=== PATIENT | male | born 1940 | race Caucasian/White ===

== ENCOUNTER 2023-07-10 06:47 | Inpatient (IN) | payer MEDICARE ==
[~2023-07-10] VITALS: Ht 185.4 cm; Wt 81.0 kg
[2023-07-10] VITALS (12 sets, daily range): BP systolic 141–199; BP diastolic 70–80; PULSE 48–62; RESP 20; TEMP 98
[2023-07-10] MEDS ORDERED: NIFE-141 PO (07:15)
[2023-07-10] MEDS ORDERED: AMOX1TAB16 PO (07:15)
[2023-07-10] MEDS ORDERED: FINA-27 PO (07:15)
[2023-07-10 07:41] LABS: BASOPHILS % (AUTO) 0.5 % (0.0-2.0); HEMATOCRIT 41.2 % (41-53); LYMPHOCYTES # (AUTO) 2.9 K/uL (1.0-4.8); LYMPHOCYTES % (AUTO) 43.4 % (22.0-44.0); MEAN CORPUSCULAR HEMOGLOBIN 32.3 pg (26.0-34.0); MEAN CORPUSCULAR VOLUME 95 fL (80-100); MONOCYTES # (AUTO) 0.6 K/uL (0.1-1.0); MONOCYTES % (AUTO) 8.6 % (2.0-9.0); NEUTROPHILS % (AUTO) 44.5 % (40.0-70.0); PLATELET COUNT (AUTO) 168 K/uL (150-450); RED BLOOD CELL COUNT(AUTO) 4.34 MIL/uL (4.50-5.90); RED CELL DISTRIBUTION WIDTH 13.3 % (11.5-14.5); WHITE BLOOD COUNT (AUTO) 6.7 K/uL (4.5-11.0)
[2023-07-10 07:56] LABS: ANION GAP 8 mmol/L (8-16); CARBON DIOXIDE 27 mmol/L (22-29); CHLORIDE 103 mmol/L (98-107); CREATININE 0.85 mg/dL (0.60-1.30); GLOMERULAR FILTR. RATE CALC > 60 mL/min (>60); GLUCOSE,RANDOM 101 mg/dL (70-110); POTASSIUM 3.8 mmol/L (3.5-5.1); SODIUM SERUM 138 mmol/L (136-145); UREA NITROGEN, BLOOD 13 mg/dL (7-18)
[2023-07-10 08:00] LABS: ALANINE AMINOTRANSFERASE 12 U/L (12-78); ALBUMIN 3.7 g/dL (3.4-5.0); ALKALINE PHOSPHATASE 64 U/L (46-116); ASPARTATE AMINOTRANSFERASE 20 U/L (15-37); BILIRUBIN,TOTAL 0.5 mg/dL (0.1-1.0); TOTAL PROTEIN, SERUM 7.1 g/dL (6.4-8.2); TROPONIN I-HIGH SENSITIVITY 139 ng/L (<76)
[2023-07-10] MEDS ORDERED: LIDOCAINE/PF 1% 30 ML VIAL ONE (10:20)
[2023-07-10] MEDS ORDERED: SODIUM BICARBONATE 50 MEQ/50 ML VIAL ONE (10:20)
[2023-07-10] MEDS ORDERED: HEPARIN SODIUM 1000 UNITS/NS 1,000 ML ONE (10:21)
[2023-07-10] MEDS ORDERED: IOHEXOL 300 MG/ML 100 ML VIAL ONE ×2 (10:21→11:47)
[2023-07-10] MEDS ORDERED: FentaNYL CITRATE PF 100 MCG/2 ML VIAL ONE (10:38)
[2023-07-10] MEDS ORDERED: MIDAZOLAM HCL 2 MG/2 ML VIAL ONE (10:38)
[2023-07-10] MEDS ORDERED: LIDOCAINE 1% 30 ML/SOD BICARB 8.4% 4 ML SQ ONE (11:00)
[2023-07-10] MEDS ORDERED: HEPARIN SODIUM 1000 UNITS/NS 1,000 ML IARTER ONE (11:00)
[2023-07-10] MEDS ORDERED: IOHEXOL 300 MG/ML 100 ML VIAL IARTER ONE ×2 (11:00→11:45)
[2023-07-10] MEDS ORDERED: HEPARIN SODIUM,PORCINE 1,000 UNITS/ML 10 ML VIAL IV ONE (11:30)
[2023-07-10] MEDS ORDERED: MIDAZOLAM HCL 2 MG/2 ML VIAL IVP ONE (11:45)
[2023-07-10] MEDS ORDERED: NITROGLYCERIN/D5W 50 MG/250 ML IV BOTTLE ICOR ONE (11:45)
[2023-07-10] MEDS ORDERED: FentaNYL CITRATE PF 100 MCG/2 ML VIAL IVP ONE (11:45)
[2023-07-10] MEDS ORDERED: TICAGRELOR 90 MG TABLET PO ONE (12:00)
[2023-07-10] MEDS ORDERED: NIFEdipine 30 MG ER TABLET PO SCH (13:45)
[2023-07-10] MEDS ORDERED: HYDROCODONE/ACETAMINOPHEN 5-325 MG TABLET PO PRN ×2 (13:45→16:00)
[2023-07-10] MEDS ORDERED: NIFEdipine 30 MG ER TABLET PO ONE ×2 (15:00→18:45)
[2023-07-10] MEDS ORDERED: FINASTERIDE 5 MG TABLET ONE (15:59)
[2023-07-10] MEDS ORDERED: ALBUTEROL SULFATE 2.5 MG/0.5 ML NEB SOLUTION NEB PRN (16:00)
[2023-07-10] MEDS ORDERED: ACETAMINOPHEN 325 MG TABLET PO PRN (16:00)
[2023-07-10] MEDS ORDERED: BISACODYL 10 MG RECTAL RECTAL SUPPOSITORY PR PRN (16:00)
[2023-07-10] MEDS ORDERED: FINASTERIDE 5 MG TABLET PO SCH (16:00)
[2023-07-10] MEDS ORDERED: MORPHINE SULFATE 2 MG/ML SYRINGE IVP PRN (16:00)
[2023-07-10] MEDS ORDERED: MAGNESIUM HYDROXIDE SUSPENSION 30 ML UDCUP PO PRN (16:00)
[2023-07-10] MEDS ORDERED: ZOLPIDEM TARTRATE 5 MG TABLET PO PRN (16:00)
[2023-07-10] MEDS ORDERED: IPRATROPIUM BROMIDE 0.5 MG/2.5 ML NEB SOLUTION NEB PRN (16:00)
[2023-07-10] MEDS ORDERED: ONDANSETRON HCL 4 MG/2 ML VIAL IVP PRN (16:00)
[2023-07-10] MEDS ORDERED: HydrALAZINE HCL 20 MG/ML VIAL IVP PRN (16:45)
[2023-07-10 20:01] LABS: FREE T4 (FREE THYROXINE) 1.15 ng/dL (0.76-1.46); THYROID STIMULATING HORMONE 2.49 uIU/mL (0.36-3.74)
[2023-07-10] MEDS ORDERED: AMOX TR/POT CLAV 875 MG/125 MG TABLET PO SCH (21:00)
[2023-07-10] MEDS ORDERED: ATORVASTATIN CALCIUM 40 MG TABLET PO SCH (21:00)
[2023-07-10] MEDS ORDERED: TICAGRELOR 90 MG TABLET PO SCH (21:00)
[2023-07-11] MEDS: HydrALAZINE HCL 25 MG TABLET PO SCH ×2 (00:35→06:36)
[2023-07-11 04:51] VITALS: BP 140/68; PULSE 60; RESP 20; TEMP 97.8
[2023-07-11 06:30] VITALS: BP 128/55; PULSE 58; RESP 18
[2023-07-11] MEDS ORDERED: TICA90TA PO (06:37)
[2023-07-11] MEDS ORDERED: ATOR40TA71 PO (06:37)
[2023-07-11] MEDS ORDERED: TICAGRELOR 90 MG TABLET PO ONE (06:45)
[2023-07-11] MEDS ORDERED: NIFEdipine 60 MG ER TABLET PO SCH (09:00)
[2023-07-11] MEDS ORDERED: NIFEdipine 90 MG ER TABLET PO SCH (09:00)
== END 2023-07-11 08:15 | disposition home or self-care (01) | DRG 247 ==
LOC: EMS 06:47 → 5S 12:35
PROVIDERS: ADMIT Hospitalist; ATTEND Hospitalist
PROC: 027135Z Dilation of Coronary Artery, Two Arteries with Two Drug-eluting Intraluminal Devices, Percutaneous Approach (ICD-10-PCS; principal; 2023-07-10)
PROC: 4A023N8 Measurement of Cardiac Sampling and Pressure, Bilateral, Percutaneous Approach (ICD-10-PCS; 2023-07-10)
PROC: B2111ZZ Fluoroscopy of Multiple Coronary Arteries using Low Osmolar Contrast (ICD-10-PCS; 2023-07-10)
PROC: B41C1ZZ Fluoroscopy of Pelvic Arteries using Low Osmolar Contrast (ICD-10-PCS; 2023-07-10)
PROC: B240ZZ3 Ultrasonography of Single Coronary Artery, Intravascular (ICD-10-PCS; 2023-07-10)
DX: I25.10 Atherosclerotic heart disease of native coronary artery without angina pectoris (principal); E78.5 Hyperlipidemia, unspecified; I25.82 Chronic total occlusion of coronary artery; I10 Essential (primary) hypertension; I35.0 Nonrheumatic aortic (valve) stenosis; N40.0 Benign prostatic hyperplasia without lower urinary tract symptoms; Z88.6 Allergy status to analgesic agent; Z79.899 Other long term (current) drug therapy; Z90.49 Acquired absence of other specified parts of digestive tract
CPT/HCPCS: 37236; 71045; 75960; 80053; 83880; 84439; 84443; 84484; 85025; 92920; 92921; 92928; 93005; 93460; 99285; G0378; J0360; J1644; J2250; J3010; J3490; Q9967; 36415-L1; 36415-TC